=== PATIENT | female | born 1935 | race Caucasian/White ===

== ENCOUNTER → 2016-07-19 | Outpatient (CLI) | payer MEDICARE, MEDICAID ==
[~2016-07-19] MED LIST: CLPD75T PO; DESV50TA PO; DOXA4TAB PO; FENT1PAT8 TD; FENT1PAT9 TD; HYDR-3702 PO; IBUP-1096 PO; INSU100I14 SQ; INSU100V5 SC; LEVO75TA4 PO; LISI20TA PO; MAGN400T26 PO; METO100T6 PO; MIRT15TA3 PO; POLY17PO6 PO; RANI300T6 PO; RSP.25T PO; [UNRECOGNIZED DRUG - CODE] PO
--- NOTE | 2016-07-19 16:43 | Diagnostic Imaging Report ---
INDICATION: Continuing back pain. COMPARISON: 10/26/2009. TECHNIQUE: Five radiographs of lumbar spine dated 07/19/2016. FINDINGS: Osseous demineralization. Examination is limited secondary to osseous demineralization by patient body habitus. Surgical clips are present within the right upper quadrant of abdomen. Extensive vascular calcifications are identified. Aneurysmal dilatation of the abdominal aorta is suggested measuring 4.0 cm in AP dimension. This, however, is not significantly changed since 2009. No significant anterolisthesis or retrolisthesis. Mild superior endplate deformity of L2 is identified, which is stable. Minimal superior endplate deformity of L1 is identified, which is stable. Minimal anterior wedging of T12 is identified, which is stable. Moderate anterior wedging of T11 is identified, which appears new since 2009, though exact chronicity is unclear. No definite additional fracture identified within the limits of this examination. Bilateral sacroiliac joints are intact. Scattered facet joint degenerative changes. Surgical clips within the right upper quadrant of abdomen. Pacer lead is partially visualized. IMPRESSION: 1. Moderate anterior wedge deformity of T11. This is of uncertain chronicity, though does appear new since 2009. Recommend clinical correlation for pain. Additionally, a CT of the thoracic spine could be obtained or further evaluation. 2. Osseous demineralization. 3. Scattered degenerative changes. 4. Aneurysmal dilatation of abdominal aorta is suggested, though this does not appear significantly changed since 2009. 5. Additional chronic compression deformities and degenerative changes as above. Report was stat faxed to the closed office of Dr. Pako Khan at 4:34 p.m. by kike (for KB). Office was also closed on 07/22/2016, called and faxed to Makenna at the office on 07/23/2016, @ 1:20 PM/aditi. Dictated by: Dictated on workstation # [id number]
--- NOTE | 2016-07-19 16:48 | Diagnostic Imaging Report ---
INDICATION: Continuing back pain. COMPARISON: Radiographs of the chest dated 12/14/2009. TECHNIQUE: Frontal and lateral radiographs of the thoracic spine are obtained dated 07/19/2016. FINDINGS: Osseous demineralization is noted. Examination is limited secondary to osseous demineralization and patient body habitus. Mild apex left curvature is noted within the visualized thoracolumbar spine. Moderate anterior wedge deformity of T11 is identified, appearing new from the prior radiograph of the chest. Additional moderate wedge deformities are identified within T7 and T8, which are also new since 2009, though of uncertain chronicity. No definite additional fracture. Extensive vascular calcifications. Pacer leads are partially visualized. IMPRESSION: 1. Moderate wedge deformities of T7, T8, and T11. These are of uncertain chronicity. However, these are new since 2009. Recommend correlation for focal pain. Additionally, a CT of the thoracic spine could help to further evaluate. 2. Degenerative changes and curvature of the thoracic spine again noted. Office is closed. Report was faxed to the office of Dr. Pako Khan at 4:44 p.m. by kike (for MAITAS) and will be called on Friday. Dictated by: Dictated on workstation # [id number]
== END ==
LOC: RAD 14:46
PROVIDERS: ATTEND Family Medicine
DX: M54.89 Other dorsalgia (principal); M43.8X4 Other specified deforming dorsopathies, thoracic region; M51.34 Other intervertebral disc degeneration, thoracic region
CPT/HCPCS: 72072; 72110

== ENCOUNTER → 2016-08-07 | Outpatient (CLI) | payer MEDICARE, MEDICAID | LOC: RAD 08:16 | PROVIDERS: ATTEND Family Medicine | DX: M48.54XA Collapsed vertebra, not elsewhere classified, thoracic region, initial encounter for fracture (principal) | CPT/HCPCS: 78306; A9503 ==

== ENCOUNTER 2016-08-24 05:12 | Emergency (ER) | payer MEDICARE, MEDICAID ==
[~2016-08-24] VITALS: Ht 167.6 cm; Wt 90.9 kg
[2016-08-24] MEDS ORDERED: SODIUM CHLORIDE FLUSH 3 ML SYR IV PRN (05:20)
[2016-08-24] MEDS ORDERED: SODIUM CHLORIDE 250 ML IV PRN (05:20)
[2016-08-24] MEDS ORDERED: ONDANSETRON 2 MG/ML (Z0FRAN) 2 ML VIAL IV ONE (05:20)
[2016-08-24] MEDS ORDERED: morphine INJ 4 MG/ML 1 ML SYRINGE IV PRN (05:20)
[2016-08-24] MEDS ORDERED: SODIUM CHLORIDE FLUSH 10 ML SYR IV PRN (05:20)
[2016-08-24 06:14] LABS: BASOPHILS % (AUTO) 1 % (0-2); EOSINOPHILS # (AUTO) 0.1 10^3uL; EOSINOPHILS % (AUTO) 2 % (0-4); LYMPHOCYTES # (AUTO) 1.1 X10^3; MEAN CORPUSCULAR HGB CONC 32.7 g/dL (31.0-37.0); MEAN PLATELET VOLUME 10.1 FL (6.0-9.5); MONOCYTES # (AUTO) 0.5 X10^3; MONOCYTES % (AUTO) 14 % (3-11); NEUTROPHILS # (AUTO) 2.2 X10^3; NEUTROPHILS % (AUTO) 56 % (51-67); PLATELET COUNT 110 10^3uL (150-450); WHITE BLOOD COUNT 3.89 10^3uL (4.0-11.0)
[2016-08-24 06:22] LABS: ALBUMIN 3.3 g/dL (3.4-5.0); ALKALINE PHOSPHATASE 124 U/L (38-126); ANION GAP 12.7 MEQ/L (3-15); BUN/CREATININE RATIO 36 (10-20); CALCULATED IONIZED CALCIUM 4.4 mg/dL (3.8-4.6); TOTAL PROTEIN 6.5 g/dL (6.4-8.5)
[2016-08-24 06:37] LABS: CREATINE KINASE < 20 U/L (30-135)
[2016-08-24 06:47] LABS: INFLUENZA VIRUS TYPE A ANTIBOD Negative (NEGATIVE); INFLUENZA VIRUS TYPE B ANTIBOD Negative (NEGATIVE)
[2016-08-24 06:49] LABS: MEAN CORPUSCULAR HEMOGLOBIN 33.3 PG (26.0-34.0); MEAN CORPUSCULAR VOLUME 102 FL (80-100)
[2016-08-24 06:54] LABS: BILIRUBIN,URINE Negative (Negative); CLARITY,URINE Cloudy; COLOR,URINE Yellow; GLUCOSE, URINE (UA) Negative (Negative); LEUKOCYTE ESTERASE ,URINE Negative (Negative); PH,URINE 8.5 (5.0 - 8.0); UROBILINOGEN,URINE 0.2 mg/dL (0.2-1.0)
--- NOTE | 2016-08-24 06:57 | NUR ---
this nurse recieved report from Lola Nava RN
[2016-08-24] MEDS ORDERED: SODIUM CHLORIDE 250 ML IV SCH (07:00)
[2016-08-24 07:06] LABS: RBC,URINE None Seen /HPF; URINE CENTRIFUGED VOLUME 12 mL
[2016-08-24 07:07] LABS: AMORPHOUS SEDIMENT,UR 1+ /HPF
--- NOTE | 2016-08-24 07:31 | NUR ---
Ns at [facility] given report. CL
[2016-08-24 07:33] VITALS: BP 159/74
== END 2016-08-24 09:15 | disposition home or self-care (01) ==
LOC: EDUNIT# 05:12 → ED 05:13
DX: N39.0 Urinary tract infection, site not specified (principal); B96.20 Unspecified Escherichia coli [E. coli] as the cause of diseases classified elsewhere; R07.9 Chest pain, unspecified; M79.1 Myalgia
CPT/HCPCS: 36415; 51701; 71010; 80053; 81003; 81015; 82550; 82553; 84484; 85025; 85610; 85730; 87077; 87088; 87186; 87502; 93005; 96361; 96374; 96375; 99285; J2270; J2405; J7050; 99284

== ENCOUNTER → 2016-08-24 | Outpatient (CLI) | payer MEDICARE, MEDICAID | LOC: EMS 04:55 | PROVIDERS: ATTEND Family Medicine | DX: R06.00 Dyspnea, unspecified (principal); R52 Pain, unspecified ==